=== PATIENT | male | born 2000 | race Caucasian/White ===

== ENCOUNTER → 2020-03-07 | Outpatient (CLI) | payer OTHER ==
--- NOTE | 2020-03-07 12:49 | Diagnostic Imaging Report ---
Indication: 5th metacarpal fracture. Time of exam: 12:07 PM No prior studies available for comparison. There is a transversely oriented fracture through the midshaft of the 5th metacarpal. Very slight volar angulation of the distal fracture fragment is noted. No other fractures are seen. Remaining metacarpals and phalanges are intact. Impression: Midshaft 5th metacarpal fracture. Dictated by: Dictated on workstation # [id number]
== END ==
LOC: RAD 11:48
PROVIDERS: ATTEND Nurse Practitioner Primary Care
DX: S62.326A Displaced fracture of shaft of fifth metacarpal bone, right hand, initial encounter for closed fracture (principal); X58.XXXA Exposure to other specified factors, initial encounter
CPT/HCPCS: 73130